=== PATIENT | male | born 1940 | race Two or more races ===

== ENCOUNTER 2017-06-05 10:48 | Emergency (ER) | payer OTHER ==
[~2017-06-05] VITALS: Ht 177.8 cm; Wt 98.3 kg
[2017-06-05 11:53] LABS: EOSINOPHIL (%) 0.9 % (0-5); EOSINOPHIL COUNT 0.1 K/uL (0-0.3); HEMATOCRIT 22.6 % (38.0-50.0); IMMATURE GRANULOCYTE (%) 0.9 % (0.0-0.7); IMMATURE GRANULOCYTE COUNT 0.1 K/uL; INSTRUMENT ABS NEUTROPHIL CT 10.3 K/uL; LYMPHOCYTE COUNT 1.2 K/uL (1.0-2.8); MCH 24.9 PG (29.0-34.0); MCHC 31.4 G/DL (30.0-36.0); MCV 79.3 FL (86-99); MEAN PLAT.VOLUME 8.3 uM^3 (9.0-12.4); MONOCYTE (%) 7.4 % (3-12); MONOCYTE COUNT 0.9 K/uL (0-0.8); NEUTROPHIL (%) 81.5 % (45-76); NEUTROPHIL COUNT 10.3 K/uL (1.8-6.4); PLATELET COUNT 825 K/uL (156-360); RBC DIS.WIDTH-CV 16.5 % (11.8-14.6); RBC DIS.WIDTH-SD 47.8 % (39-53); RED BLOOD COUNT 2.85 M/uL (4.00-5.50); WHITE BLOOD COUNT 12.6 K/uL (4.1-10.2)
[2017-06-05 12:03] LABS: CHLORIDE 104 mEq/L (99-109); POTASSIUM 4.6 mEq/L (3.7-5.4); SODIUM 136 mEq/L (136-147)
[2017-06-05 12:05] LABS: GLUCOSE 129 mg/dL (70-99)
[2017-06-05 12:06] LABS: ANION GAP 6 MEQ/L (2-14)
[2017-06-05 12:09] LABS: GFR ESTIMATE (CALCULATED) > 59 mL/min/
[2017-06-05 12:10] LABS: UREA NITROGEN (BUN) 16 mg/dL (9-23)
[2017-06-05] MEDS ORDERED: TYLENOL REGULA325 MG PO (13:54)
[2017-06-05] MEDS ORDERED: GENERLAC10 GM/15 M PO (13:56)
[2017-06-05] MEDS ORDERED: CHILD ASPIRIN81 M1 PO (13:57)
[2017-06-05] MEDS ORDERED: REMERON15 M2 PO (13:58)
[2017-06-05] MEDS ORDERED: COLACE100 MG PO (13:58)
[2017-06-05] MEDS ORDERED: NIFEDIPINE ER60 MG PO (13:59)
[2017-06-05] MEDS ORDERED: ZOCOR20 MG PO (13:59)
[2017-06-05] MEDS ORDERED: PRILOSEC20 MG PO (14:00)
[2017-06-05] MEDS ORDERED: FLOMAX0.4 MG PO (14:01)
[2017-06-05] MEDS ORDERED: ACETAMINOPHEN-1 EAC1 PO (14:02)
[2017-06-05] MEDS ORDERED: BACTRIM,SEPT1 TABLET PO (14:03)
[2017-06-05 14:35] VITALS: BP 128/60
== END 2017-06-05 14:50 | disposition short-term general hospital (02) ==
LOC: EME 10:48
PROVIDERS: Emergency Medicine
PROC: 0H9HXZZ Drainage of Right Upper Leg Skin, External Approach (ICD-10-PCS; principal; 2017-06-05)
DX: L03.115 Cellulitis of right lower limb (principal); M00.9 Pyogenic arthritis, unspecified; Z98.890 Other specified postprocedural states; Z96.641 Presence of right artificial hip joint; I10 Essential (primary) hypertension; Z79.82 Long term (current) use of aspirin; Z87.891 Personal history of nicotine dependence
CPT/HCPCS: 80048; 83605; 85025; 99281; 99285; J2270; J7030

== ENCOUNTER 2018-02-15 20:02 | Emergency (ER) | payer OTHER ==
[~2018-02-15] VITALS: Ht 175.3 cm; Wt 96.3 kg
[~2018-02-15 20:02] MED LIST: ACETAMINOPHEN-1 EAC1 PO; BACTRIM,SEPT1 TABLET PO; CHILD ASPIRIN81 M1 PO; COLACE100 MG PO; FLOMAX0.4 MG PO; GENERLAC10 GM/15 M PO; NIFEDIPINE ER60 MG PO; PRILOSEC20 MG PO; REMERON15 M2 PO; TYLENOL REGULA325 MG PO; ZOCOR20 MG PO
[2018-02-15 20:28] LABS: HEMATOCRIT 31.4 % (38.0-50.0); HEMOGLOBIN 10.5 G/DL (12.5-16.6); MCHC 33.4 G/DL (30.0-36.0); MCV 83.7 FL (86-99); PLATELET COUNT 612 K/uL (156-360); RBC DIS.WIDTH-CV 14.5 % (11.8-14.6); RBC DIS.WIDTH-SD 43.9 % (39-53); RED BLOOD COUNT 3.75 M/uL (4.00-5.50); WHITE BLOOD COUNT 9.9 K/uL (4.1-10.2)
[2018-02-15 20:37] LABS: CHLORIDE 95 mEq/L (99-109); POTASSIUM 4.4 mEq/L (3.7-5.4); SODIUM 130 mEq/L (136-147)
[2018-02-15 20:38] LABS: GLUCOSE 130 mg/dL (70-99)
[2018-02-15 20:42] LABS: CREATININE 1.1 mg/dL (0.6-1.3); GFR ESTIMATE (CALCULATED) > 59 mL/min/ (58.99-99999)
[2018-02-15 20:43] LABS: UREA NITROGEN (BUN) 18 mg/dL (9-23)
[2018-02-15 20:51] LABS: TROP-I INTERPRETATION NEGATIVE; TROPONIN-I 0.01 ng/mL (0.0-0.30)
[2018-02-15] MEDS ORDERED: LIDOCAINE20 MG/1 M5 PO (22:50)
[2018-02-15 23:58] VITALS: BP 155/58
== END 2018-02-16 00:05 ==
LOC: EME 20:02
DX: F45.8 Other somatoform disorders (principal); I25.10 Atherosclerotic heart disease of native coronary artery without angina pectoris; Q27.2 Other congenital malformations of renal artery; I44.0 Atrioventricular block, first degree; K21.9 Gastro-esophageal reflux disease without esophagitis; N40.0 Benign prostatic hyperplasia without lower urinary tract symptoms; F32.9 Major depressive disorder, single episode, unspecified; Z79.01 Long term (current) use of anticoagulants; Z79.82 Long term (current) use of aspirin; Z87.891 Personal history of nicotine dependence; Z96.641 Presence of right artificial hip joint
CPT/HCPCS: 70491; 71275; 80048; 84484; 85027; 93005; 99281; 99285; J7030